=== PATIENT | female | born 1960 | race Caucasian/White ===

== ENCOUNTER 2020-08-17 11:39 | Outpatient (REF) | payer OTHER, SELFPAY | END 2020-08-17 11:40 | disposition home or self-care (01) | LOC: HO.LAB 11:39 | PROVIDERS: PCP Internal Medicine; Visit Provider Internal Medicine | DX: Z20.828 Contact with and (suspected) exposure to other viral communicable diseases (principal) | CPT/HCPCS: C9803; U0003 ==

== ENCOUNTER 2020-10-07 08:04 | Outpatient (REF) | payer OTHER, SELFPAY ==
--- NOTE | ~2020-10-07 | MM_ITS ---
EXAMINATION: MM SCREENING DIGITAL BREAST TOMOSYNTHESIS, BILATERAL CLINICAL INFORMATION: Screening. Asymptomatic. The lifetime risk of breast cancer based on the Tyrer-Cuzick Model is 6%. COMPARISON: Mammography: 10/31/2019, 09/20/2018, 09/18/2017 TECHNIQUE: Digital breast tomosynthesis is performed in both the craniocaudal and mediolateral oblique views along with computer-aided detection (CAD). Synthesized 2D images are generated from the tomosynthesis. FINDINGS: The breasts are heterogeneously dense, which may obscure small masses (ACR BI-RADS breast composition Category c). There are no significant masses, abnormal calcifications, or other abnormalities. Breast tissue composition borders on average fibroglandular. There are some stable calcifications central 3:00 left breast, likely vascular on tomography. No significant changes. MM/MM tomosynthesis screening BI IMPRESSION: No mammographic evidence of malignancy. ASSESSMENT: BI-RADS 2: Benign RECOMMENDATION: Routine annual mammography screening. This patient's information was entered into a reminder system with a target due date for their next mammogram.
== END 2020-10-07 08:05 | disposition home or self-care (01) ==
LOC: HO.MAMMO 08:04
PROVIDERS: Visit Provider Internal Medicine
DX: Z12.31 Encounter for screening mammogram for malignant neoplasm of breast (principal)
CPT/HCPCS: 77063; 77067

== ENCOUNTER 2020-10-27 07:53 | Day surgery (SDC) | payer OTHER, SELFPAY ==
[2020-10-22 10:30] VITALS: BMI 24.5
--- NOTE | 2020-10-26 08:51 | P.CONAN_ITS ---
Documented by User: Miladis Dominguez 10/26/20 08:51 HPI - Anesthesia Eval Consult details Narrative: 60yo F for Colonoscopy PMFSH Past Medical History Medical History (Updated 10/27/20 @ 09:53 by Alexia Qureshi) Anxiety and depression Hx: UTI (urinary tract infection) Hyperlipidemia Migraines Surgical History Surgical History History of History of endometrial ablation Hx of colonoscopy Hx of ovarian cystectomy Social History Social History Are you a primary acute care occupational therapist to a significant other at home: No Do you presently have visiting nurse or other home services: No Smoking Status: Never smoker Use of substances other than those prescribed or required for medical reasons: No Have you been hit, kicked, punched, or otherwise hurt by someone within the past year? If so, by whom?: No Advance Directives: No Advance Directives Information Provided: No Advance Directives on File: No Recently lost weight without trying: No Meds Allergies Allergy/AdvReac Type Severity Reaction Status Date / Time lincomycin Allergy Intermediate Rash Verified 10/27/20 08:45 sulfa Allergy Intermediate anaphylaxis Verified 10/27/20 08:45 terbinafine [Lamisil] Allergy Intermediate Anaphylaxis Verified 10/27/20 08:45 ampicillin Allergy Intermediate rash/hives Uncoded 10/27/20 08:45 clindamycin Allergy Intermediate rash/hives Uncoded 10/27/20 08:45 miconazole Allergy Intermediate rash/hives Uncoded 10/27/20 08:45 phenazopyridine Hcl Allergy Intermediate rash/hives Uncoded 10/27/20 08:45 Home Medications Medication Instructions Recorded Confirmed Last Taken Type atorvastatin 1 tab PO DAILY 10/22/20 10/22/20 Unknown History multivitamin 1 tab PO DAILY 10/22/20 10/22/20 Unknown History naproxen sodium [Aleve] 220 mg PO BID PRN 10/22/20 10/22/20 Unknown History sertraline 1 tab PO DAILY 10/22/20 10/22/20 10/27/20 06:30 History Exam Exam Date and Time: October 26, 2020 0851 Height,Weight and Vital Signs: Height 5 ft 6 in Weight 68.946 kg Assessment and Plan Assessment Anesthesia Assessment: Chart Reviewed Documented by User: Alexia Qureshi 10/27/20 10:01 PMFSH Past Medical History Medical History (Updated 10/27/20 @ 09:53 by Alexia Qureshi) Anxiety and depression Hx: UTI (urinary tract infection) Hyperlipidemia Migraines Family History Family history of problems with anesthesia: No Surgical History Surgical History History of History of endometrial ablation Hx of colonoscopy Hx of ovarian cystectomy History of Problems with Anesthesia: Yes (PONV with ) Social History Social History Are you a primary acute care occupational therapist to a significant other at home: No Do you presently have visiting nurse or other home services: No Smoking Status: Never smoker Use of substances other than those prescribed or required for medical reasons: No Have you been hit, kicked, punched, or otherwise hurt by someone within the past year? If so, by whom?: No Advance Directives: No Advance Directives Information Provided: No Advance Directives on File: No Recently lost weight without trying: No Meds Allergies Allergy/AdvReac Type Severity Reaction Status Date / Time lincomycin Allergy Intermediate Rash Verified 10/27/20 08:45 sulfa Allergy Intermediate anaphylaxis Verified 10/27/20 08:45 terbinafine [Lamisil] Allergy Intermediate Anaphylaxis Verified 10/27/20 08:45 ampicillin Allergy Intermediate rash/hives Uncoded 10/27/20 08:45 clindamycin Allergy Intermediate rash/hives Uncoded 10/27/20 08:45 miconazole Allergy Intermediate rash/hives Uncoded 10/27/20 08:45 phenazopyridine Hcl Allergy Intermediate rash/hives Uncoded 10/27/20 08:45 Home Medications Medication Instructions Recorded Confirmed Last Taken Type atorvastatin 1 tab PO DAILY 10/22/20 10/22/20 Unknown History multivitamin 1 tab PO DAILY 10/22/20 10/22/20 Unknown History naproxen sodium [Aleve] 220 mg PO BID PRN 10/22/20 10/22/20 Unknown History sertraline 1 tab PO DAILY 10/22/20 10/22/20 10/27/20 06:30 History Exam Height,Weight and Vital Signs: Vital Signs Temp Pulse Resp BP Pulse Ox 10/27/20 08:58 98.1 F 85 18 127/82 97 Airway Mallampati Class: II TM Dist: >3cm Neck ROM: Full Loose/Missing/Broken Teeth: No Heart: RRR Lungs: CTAB Assessment and Plan Assessment Anesthesia Assessment: Anesthesia Plan Discussed and Chart Reviewed Final Anesthetic Review NPO: Yes ASA Class: II Final Preanesthetic Review: No Changes in Pt Med Stat, Meds/Allgs Chart Reviewed, Consent Obtained/Reviewed and Anes Risks/Benef Reviewed Patient Risk: Low Procedure Risk: Low Assessment/Block/Sedation in SS: Assess/Block/Sedation-SS Anesthetic Plan Anesthetic Plan: MAC: Disposition: Standard PACU
[2020-10-27 08:58] VITALS: BP 127/82; PULSE 85; RESP 18; TEMP 36.7; O2SAT 97
[2020-10-27] MEDS: Lactated Ringers 1,000 ML 100 ML IVCONT (09:09)
--- NOTE | 2020-10-27 09:30 | P.HPSUR_ITS ---
Pre-Procedural Eval Section B Chief Complaint: screening Details of Present Illness: screening Relevant Family History (Specify if Yes): No Relevant Social History: None Present Medications: see Short Stay Collaborative assessment Medical History: No relevant PMH History of Previous Operations: No relevant previous surgery Allergies: Allergies Allergy/AdvReac Type Severity Reaction Status Date / Time lincomycin Allergy Intermediate Rash Verified 10/27/20 08:45 sulfa Allergy Intermediate anaphylaxis Verified 10/27/20 08:45 terbinafine [Lamisil] Allergy Intermediate Anaphylaxis Verified 10/27/20 08:45 ampicillin Allergy Intermediate rash/hives Uncoded 10/27/20 08:45 clindamycin Allergy Intermediate rash/hives Uncoded 10/27/20 08:45 miconazole Allergy Intermediate rash/hives Uncoded 10/27/20 08:45 phenazopyridine Hcl Allergy Intermediate rash/hives Uncoded 10/27/20 08:45 Review of Systems Sugical H&P ROS: Negative: Constitution, Cardiovascular, Respiratory, Neurological, Psychiatric, Hem-Onc, Allergic/Immunologic, Gastrointestinal, Ling tourinary, Musculoskeletal, Integumentary, Endocrine and Eyes/Ears/Nose/Throat Exam Surgical H&P Exam: Normal: HEENT, Normal: Heart, Normal: Lungs, Normal: Extremities, Normal: Abdomen, Normal: Skin and Normal: Neurological Plan Diagnosis/Plan: Unchanged I have reviewed the history and physical and performed a pertinent physical examination on my patient. No changes have occurred unless specified.
--- NOTE | 2020-10-27 09:58 | HO.ANESPROP2 ---
[facility] Past Medical History Medical History Anxiety and depression Hx: UTI (urinary tract infection) Hyperlipidemia Migraines Family History Family history of problems with anesthesia: No Surgical History Surgical History History of History of endometrial ablation Hx of colonoscopy Hx of ovarian cystectomy History of Problems with Anesthesia: Yes (PONV with ) Social History Social History Are you a primary child care development specialist to a significant other at home: No Do you presently have visiting nurse or other home services: No Smoking Status: Never smoker Use of substances other than those prescribed or required for medical reasons: No Have you been hit, kicked, punched, or otherwise hurt by someone within the past year? If so, by whom?: No Advance Directives: No Advance Directives Information Provided: No Advance Directives on File: No Recently lost weight without trying: No Meds Allergies Allergy/AdvReac Type Severity Reaction Status Date / Time lincomycin Allergy Intermediate Rash Verified 10/27/20 08:45 sulfa Allergy Intermediate anaphylaxis Verified 10/27/20 08:45 terbinafine [Lamisil] Allergy Intermediate Anaphylaxis Verified 10/27/20 08:45 ampicillin Allergy Intermediate rash/hives Uncoded 10/27/20 08:45 clindamycin Allergy Intermediate rash/hives Uncoded 10/27/20 08:45 miconazole Allergy Intermediate rash/hives Uncoded 10/27/20 08:45 phenazopyridine Hcl Allergy Intermediate rash/hives Uncoded 10/27/20 08:45 Active Medications: Current Medications Generic Name Dose Route Start Last Admin Trade Name Freq PRN Reason Stop Dose Admin Lactated Ringer's 1,000 mls @ 100 mls/hr 10/27/20 08:45 10/27/20 09:09 Lr IVCONT 100 mls/hr .Q10H SHERIN Administration Home Medications Medication Instructions Recorded Confirmed Last Taken Type atorvastatin 1 tab PO DAILY 10/22/20 10/22/20 Unknown History multivitamin 1 tab PO DAILY 10/22/20 10/22/20 Unknown History naproxen sodium [Aleve] 220 mg PO BID PRN 03/04/21 03/04/21 Unknown History sertraline 1 tab PO DAILY 10/22/20 10/22/20 10/27/20 06:30 History Exam Exam Date and Time: October 27, 2020 0958 Height,Weight and Vital Signs: Height 5 ft 6 in Weight 68.946 kg Last Vital Signs Temp 98.1 F 10/27/20 08:58 Pulse 85 10/27/20 08:58 Resp 18 10/27/20 08:58 BP 127/82 10/27/20 08:58 Pulse Ox 97 10/27/20 08:58 Airway Mallampati Class: II TM Dist: >3cm Neck ROM: Full
[2020-10-27 10:10] VITALS: BP 108/68; PULSE 80; RESP 16; TEMP 36.3; O2SAT 97
--- NOTE | 2020-10-27 10:14 | PM.OP ---
Brief Operative Note Date of Service: 10/27/20 Pre-op diagnosis: screening Post-op diagnosis: same (colon polyps) Procedure: colonoscopy Surgeon: Larry Murguia Anesthesia: MAC Estimated blood loss (mL): 2 Pathology: other (polyps x2) Condition: stable Disposition: PACU
[2020-10-27 10:25] VITALS: BP 125/77; PULSE 70; RESP 17; TEMP 36.3; O2SAT 100
--- NOTE | 2020-10-27 10:49 | OP_ITS ---
SURGEON: Larry Murguia MD INDICATIONS: Colon cancer screening. PREOPERATIVE DIAGNOSIS: POSTOPERATIVE DIAGNOSIS: PROCEDURE PERFORMED: Colonoscopy to the terminal ileum with biopsy and snare polypectomy. ESTIMATED BLOOD LOSS: COMPLICATIONS: ANESTHESIA: ASSISTANTS: SPECIMENS: MEDICATIONS: Monitored anesthesia care. DESCRIPTION OF PROCEDURE: History and physical performed. The risks and benefits of the procedure were explained to the patient. Informed consent was obtained and the patient was placed in left lateral decubitus position. A digital rectal exam was performed and was found to be normal. The Olympus pediatric video colonoscope was introduced into the rectum and advanced to the cecum without difficulty. The cecum was identified by transillumination, palpation, and identification of the ileocecal valve. Examination was performed and the scope was removed. She tolerated the procedure well and was transferred to recovery area in stable condition. FINDINGS: The terminal ileum was examined and appeared normal. The visualized colonic mucosa was within normal limits without evidence of masses or ulcers. Two polyps were identified. The first at 55 cm measured less than 5 mm and was removed with biopsy forceps. The second at 45 cm was removed with a snare, it measured approximately 6 mm and was recovered via suction. No other polyps were identified. The quality of prep was good. Retroflexed examination was remarkable for small internal hemorrhoids. IMPRESSION: Colon polyps. RECOMMENDATION: Follow up the biopsy results. MD SANFORD Belle/REJIL / [id number]
== END 2020-10-27 10:58 | disposition home or self-care (01) ==
PROVIDERS: PCP Physician Assistant Medical; Visit Provider Internal Medicine Gastroenterology
PROC: 0DJD8ZZ Inspection of Lower Intestinal Tract, Via Natural or Artificial Opening Endoscopic (ICD-10-PCS; CPT 45378; principal; 2020-10-27 09:10)
DX: Z12.11 Encounter for screening for malignant neoplasm of colon (principal); D12.5 Benign neoplasm of sigmoid colon; K64.8 Other hemorrhoids; E78.5 Hyperlipidemia, unspecified; F32.9 Major depressive disorder, single episode, unspecified; Z79.899 Other long term (current) drug therapy; Z79.1 Long term (current) use of non-steroidal anti-inflammatories (NSAID); Z88.1 Allergy status to other antibiotic agents; Z88.2 Allergy status to sulfonamides
CPT/HCPCS: 45385; 45380; 88305

== ENCOUNTER 2021-10-12 07:41 | Outpatient (REF) | payer BC, SELFPAY ==
--- NOTE | ~2021-10-12 | MM_ITS ---
EXAMINATION: MM SCREENING DIGITAL BREAST TOMOSYNTHESIS, BILATERAL CLINICAL INFORMATION: Screening. Asymptomatic. The lifetime risk of breast cancer based on the Tyrer-Cuzick Model is 6%. COMPARISON: Mammography: 10/07/2020, 01/31/2020, 09/20/2018 TECHNIQUE: Digital breast tomosynthesis is performed in both the craniocaudal and mediolateral oblique views along with computer-aided detection (CAD). Synthesized 2D images are generated from the tomosynthesis. FINDINGS: There are scattered areas of fibroglandular density (ACR BI-RADS breast composition Category b). There are no significant masses, abnormal calcifications, or other abnormalities. There are vascular calcifications again present central 3:00 left breast mid depth similar to prior exams. Breast tissue composition borders on average fibroglandular. The axilla and skin contours are unremarkable. There are no significant changes from prior studies. MM/MM tomosynthesis screening BI IMPRESSION: No mammographic evidence of malignancy. ASSESSMENT: BI-RADS 2: Benign RECOMMENDATION: Routine annual mammography screening. This patient's information was entered into a reminder system with a target due date for their next mammogram.
== END 2021-10-12 07:42 | disposition home or self-care (01) ==
LOC: HO.MAMMO 07:41
PROVIDERS: Visit Provider Physician Assistant Medical
DX: Z12.31 Encounter for screening mammogram for malignant neoplasm of breast (principal)
CPT/HCPCS: 77063; 77067

== ENCOUNTER 2022-10-20 07:18 | Outpatient (REF) | payer BC, SELFPAY ==
--- NOTE | ~2022-10-20 | MM_ITS ---
EXAMINATION: MM SCREENING DIGITAL BREAST TOMOSYNTHESIS, BILATERAL CLINICAL INFORMATION: Screening. Asymptomatic. The lifetime risk of breast cancer based on the Tyrer-Cuzick Model is 5%. COMPARISON: Mammography: October 12, 2021 and studies dating back to September 01, 2015 TECHNIQUE: Digital breast tomosynthesis is performed in both the craniocaudal and mediolateral oblique views along with computer-aided detection (CAD). Synthesized 2D images are generated from the tomosynthesis. FINDINGS: The breasts are heterogeneously dense, which may obscure small masses (ACR BI-RADS breast composition Category c). There are no significant masses, abnormal calcifications, or other abnormalities. Stable calcifications seen bilaterally. MM/MM tomosynthesis screening BI IMPRESSION: No significant changes from prior exam. ASSESSMENT: BI-RADS 2: Benign RECOMMENDATION: Routine annual mammography screening. This patient's information was entered into a reminder system with a target due date for their next mammogram.
== END 2022-10-20 07:19 | disposition home or self-care (01) ==
LOC: HO.MAMMO 07:18
PROVIDERS: PCP Physician Assistant Medical; Visit Provider Physician Assistant Medical
DX: Z12.31 Encounter for screening mammogram for malignant neoplasm of breast (principal)
CPT/HCPCS: 77063; 77067

== ENCOUNTER 2023-10-26 07:25 | Outpatient (REF) | payer BC, SELFPAY | END 2023-10-26 07:26 | disposition home or self-care (01) | LOC: HO.MAMMO 07:25 | PROVIDERS: PCP Physician Assistant Medical; Visit Provider Physician Assistant Medical | DX: Z12.31 Encounter for screening mammogram for malignant neoplasm of breast (principal) | CPT/HCPCS: 77063; 77067 ==

== ENCOUNTER → 2023-10-26 07:30 | Outpatient (BNV) | payer BC, SELFPAY | PROVIDERS: PCP Physician Assistant Medical; Visit Provider Radiology Diagnostic Radiology | DX: Z12.31 Encounter for screening mammogram for malignant neoplasm of breast (principal) | CPT/HCPCS: 77063; 77067 ==

== ENCOUNTER 2024-11-07 07:22 | Outpatient (REF) | payer BC, SELFPAY | END 2024-11-07 07:23 | disposition home or self-care (01) | LOC: HO.MAMMO 07:22 | PROVIDERS: Absent Provider Nurse Practitioner Adult Health; PCP Physician Assistant Medical; Visit Provider Physician Assistant Medical | DX: Z12.31 Encounter for screening mammogram for malignant neoplasm of breast (principal) | CPT/HCPCS: 77063; 77067 ==

== ENCOUNTER → 2024-11-07 07:30 | Outpatient (BNV) | payer BC, SELFPAY | PROVIDERS: Absent Provider Nurse Practitioner Adult Health; PCP Physician Assistant Medical; Visit Provider Internal Medicine | DX: Z12.31 Encounter for screening mammogram for malignant neoplasm of breast (principal) | CPT/HCPCS: 77063; 77067 ==

== ENCOUNTER 2025-06-05 09:33 | Outpatient (REF) | payer BC, SELFPAY ==
[2025-06-05 15:20] LABS: Chlamydia pneumoniae PCR Not Detected (Not Detect.); Coronavirus 229E PCR Not Detected (Not Detect.); Coronavirus HKU1 PCR Not Detected (Not Detect.); Coronavirus NL63 PCR Not Detected (Not Detect.); Coronavirus OC43 PCR Not Detected (Not Detect.); RSV PCR Not Detected (Not Detect.); Rhino/Enterovirus PCR Not Detected (Not Detect.)
[2025-06-05 16:04] LABS: Influenza A H1 PCR Not Detected (Not Detect.); Influenza A H1-2009 PCR Not Detected (Not Detect.); Influenza A H3 PCR Not Detected (Not Detect.); SARS-CoV-2 PCR Detected (Not Detect.)
== END 2025-06-05 09:34 | disposition home or self-care (01) ==
LOC: HO.LNP 09:33
PROVIDERS: PCP Physician Assistant Medical; Visit Provider Physician Assistant Medical
DX: R09.81 Nasal congestion (principal); R05.9 Cough, unspecified; R53.83 Other fatigue; R06.7 Sneezing; J34.89 Other specified disorders of nose and nasal sinuses
CPT/HCPCS: 87633

== ENCOUNTER 2025-06-05 09:33 | Outpatient (AMB) | payer BC, SELFPAY ==
--- NOTE | 2025-06-05 09:37 | AM.OFFWIN_ITS ---
Intake Vital Signs 06/05/25 09:41 Height 5 ft 6 in Weight 155 lb BMI 25.0 BP 120/74 Blood Pressure Location Lt brachial Position Sitting Pulse 90 Pulse Source Pulse Oximeter Temp 98.5 F Temp Source Oral Pulse Oximetry (%) 98 Intake Visit Reasons: EP Covid symptoms [phone] Intake Note: pt is here for c/o upper resp symptoms, 2 positive at home covid test, needs a work note Patient Tobacco Use Status: Never used Tobacco Allergies lincomycin Allergy (Intermediate, Verified 01/09/23 08:25) Rash sulfa Allergy (Intermediate, Verified 01/09/23 08:25) anaphylaxis terbinafine (Lamisil) Allergy (Intermediate, Verified 01/09/23 08:25) Anaphylaxis ampicillin Allergy (Intermediate, Uncoded 01/09/23 08:25) rash/hives clindamycin Allergy (Intermediate, Uncoded 01/09/23 08:25) rash/hives miconazole Allergy (Intermediate, Uncoded 01/09/23 08:25) rash/hives phenazopyridine Hcl Allergy (Intermediate, Uncoded 01/09/23 08:25) rash/hives Do you need a note to return to daycare/school/sports/work: Yes HPI HPI Comments History of Present Illness Details History - The patient is a 65-year-old female pr esenting with symptoms suggestive of a COVID-19 infection. - Symptoms began on Monday with mild fat igue and nasal congestion, progressing to sneezing and rhinorrhea by Monday. - The patient tested positive for COVID- 19 using home tests on Monday, with a repeat test confirming the result. - Symptoms include a dry throat, nasal c ongestion, and a dry cough, but no fever has been reported. - The patient has been vaccinated agains t COVID-19 but not recently. - The patient was exposed to family memb ers with cold-like symptoms over the weekend prior to symptom onset. - She has been taking Advil Cold at home . - She denies fever, CP, SOB, abd pain, n /v/d, PIRES, dizziness, loss of taste or smell. - She needs to confirm the diagnosis and get a work note when she needs or can return to work. Physical Exam General: Cooperative, healthy appearing, comfortable and no acute distress Orientation/consciousness: Patient oriented x3 Limitations: No limitations Head: Normal to inspection Ears: Hearing grossly normal bilaterally, external ears normal and TM's normal bilaterally Nose: Normal external nose present, normal nares present, and no nasal discharge present. Face and sinus: Sinuses nontender to palpation. Mouth: Normal oral and palatal mucosa present and moist mucous membranes noted. Throat: Tonsils normal. Uvula is midline. Posterior oropharynx with erythema and no exudates. Eyes: Appearance normal, both eyes and all related structures Neck: Normal visual inspection, full ROM. No lymphadenopathy noted. Respiratory: Clear to auscultation bilaterally. Normal respiratory effort, able to speak in complete sentences. No respiratory distress, not tachypneic, no tripod positioning and no use of accessory muscles. Cardiovascular: Regular rate and rhythm. Normal S1 and S2 Skin: No rashes or lesions noted Patient was informed and verbally consented to the use of an ambient scribe for clinic note documentation during this visit [facility] Medical History Anxiety and depression Hx: UTI (urinary tract infection) Hyperlipidemia Migraines Surgical History History of History of endometrial ablation Hx of colonoscopy Hx of ovarian cystectomy Social History Are you a primary hiv/aids care nurse to a significant other at home: No Do you presently have visiting nurse or other home services: No Patient Tobacco Use Status: Never used Tobacco Review of Systems Const All systems reviewed & are unremarkable except as noted in HPI and below Physical Exam Vital Signs: Last Vital Signs Temp 98.5 F 06/05/25 09:41 Pulse 90 06/05/25 09:41 BP 120/74 06/05/25 09:41 Pulse Ox 98 06/05/25 09:41 BMI result Body Mass Index 25.0 Assessment & Plan Assessment & Plan (1) URI with cough and congestion: Code(s): J06.9 - Acute upper respiratory infection, unspecified Plan Most likely covid vs flu vs RSV vs URI vs viral illness plan - will order a resp panel in the office today - The patient will quarantine for five days from symptom onset, followed by five days of mask use per CDC - Symptomatic treatment includes Flonase, a decongestant, and a cough suppressant. - will call with the results - tylenol or motrin as needed for pain or fever - A note will be provided for work clearance on Monday. Orders: Orders Resp Pathogen Panel - [facility] [place] J06.9 - Acute upper respiratory infection, unspecified Medications: New cetirizine-pseudoephedrine 5-120 mg ER 1 tab PO BID 14 tabs 0RF 7 days benzonatate 100 mg PO bid-tid PRN 21 caps 0RF Cough 7 days Coding Level of Care Code Est Pt Level 3 (43897) Diagnoses URI with cough and congestion J06.9
[2025-06-05 09:41] VITALS: BP 120/74; PULSE 90; TEMP 36.9; O2SAT 98; BMI 25.0
--- OUTSIDE RECORDS SUMMARY | 2025-06-05 10:56 | XMS_ITS | Clinical Summary ---
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 Name Role Phone Unavailable Primary Care Provider Unavailabl e Social History Tobacco Use Types Packs/Day Years Used Date Smoking Tobacco: Never Assessed Comments Unknown Sex and Gender Information Value Date Recorded Sex Assigned at Not on file Legal Sex Female 6:29 PM EST Gender Identity Not on file Sexual Orientation Not on file Plan of Treatment Health Maintenance Due Date Last Done Comments Advance Care Planning 1960 Hepatitis C Virus Screening 1960 DTaP/Tdap/Td Vaccines (1 - Tdap) 1978 Mammogram 1999 Colonoscopy 2004 Pneumococcal Vaccines 50+ (1 of 1 - PCV) 2009 Zoster (Shingles) Vaccine (1 of 2) 2009 DXA Bone Density (Females,Ag es 65 and older) 2024 Influenza Vaccine 03/21/2025 08/12/2020 COVID-19 Vaccine (1 - 2023-2 5 season) 2025 RSV Vaccine 50 years and old er and Patients (1 - 1-dose 75+ series) 2034 Hepatitis B Vaccines Aged Out No long er eligible based on patient's age to complete this topic Insurance [facility]
--- OUTSIDE RECORDS SUMMARY | 2025-06-05 10:56 | XMS_ITS | Patient Health Record ---
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 Name Role Phone Roland Stuart Primary Care Provider Larry Murguia Jr Unavailable Allergies Allergen (clinical drug ingredient) Drug/Non Drug Allergy documented on EMR Reaction Allergy Type Onset Date Status miconazole Miconazole Nitrate Unknown Drug Allergy Active Lamisil Unknown Drug Allergy Active clindamycin Clindamycin HCl Unknown Drug Allergy Active ampicillin Ampicillin Unknown Drug Allergy Activ e Substance with sulfonamide structure and antibacterial mechanism of action (substance) Sulfa Drugs (uncoded) Unknown Allergy Active lincomycin Lincomycin HCl Unknown Drug Allergy A ctive sulfacetamide Sulfacetamide Sodium Unknown Drug Allergy Active phenazopyridine Phenazopyridine HCl Unknown Drug Allergy Active Reason For Referral No Information Medications Medication SIG (Take, Route, Frequency, Duration) Notes Start Date End Date Status MiraLax (colon prep) 8.3 ounce ((238) grams mixed with Gatorade or Crystal Light orally begin at 5:00 p.m. the day before the procedure; Duration: 1 day 09/18/2020 Active Atorvastatin Calcium Active Sertraline HCl Activ e Aleve PRN Active Multivitamin w/ calciumm Activ e Ibuprofen PRN Active Immunizations Vaccine Route Administration Date Status Comme nts Influenza Unknown 06/03/2020 Administered Social History Tobacco Use: Social History Observation Description Date Details (start date - stop date) Never Smoker NA - NA Tobacco Use/Smoking Question Answer Notes Patient is a nonsmoker Alcohol Screen Question Answer Notes Did you have a drink contain ing alcohol in the past year? Yes How often did you have a dri nk containing alcohol in the past year? 2 to 3 times a week (3 points) How often did you have 6 or more drinks on one occasion in the past year? 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 use of non-steroidal anti-inflammat ory drug ([id number] 03) prison (current) use of non-steroidal anti-inflammatori es (NSAID) (Z79.1) Active confirmed Problem Pre-procedure evaluation check (685060459) Encounter for other preprocedural examination (Z01.818) Active confirmed Plan Of Treatment Future Test Test Name Order Date COLONOSCOPY 09/18/2020 Insurance Providers Payer Name Payer Address Payer Phone Subscriber Number Group Number Insured Name Patient Relationship to Insured Coverage Start Date Coverage End Date [facility] [address] [facility] [place] [phone] [id number] CARRIERRODRIGO Self - patient is the insured Medical (General) History Medical History History ICD Code anxiety/depression urinary tract infections hyperlipidemia irregular heartbeat , Holter monitor neg ative for pathology migraines Surgical History Surgery Date(Month/Year) section 2x uterine ablation, left ovarian cystectom y
--- OUTSIDE RECORDS SUMMARY | 2025-06-05 10:56 | XMS_ITS | Patient Health Record ---
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 Name Role Phone Roland Stuart MD Primary Care Provider Frederick Delcid Unavailable [phone] Allergies Allergen (clinical drug ingredient) Drug/Non Drug Allergy documented on EMR Reaction Allergy Type Onset Date Status ampicillin Ampicillin rash Drug Allergy Activ e clindamycin Clindamycin HCl rash/ dermatitis Drug Allergy Active Lamisil swelling, rash Drug Allergy Ac tive sulfacetamide Sulfacetamide Sodium rash/ dermatitis Drug Allergy Active lincomycin Lincomycin HCl rash/ dermatitis Drug Allergy Active sulfa rash/ dermatitis Drug Allergy Active Penicillin rash Drug Allergy Active codeine Codeine dizzy Drug Allergy Active Reason For Referral No Information Medications Medication SIG (Take, Route, Fr equency, Duration) Notes Start Date End Date Status Calcium Unknown Multivitamin Unknown Sertraline HCl 50 MG Oral; Duration: 090 Unknown Social History Tobacco use other than smoking: Question Answer Notes Are you an other tobacco user? No Problems Problem Type SNOMED Code ICD Code Onset Dates Problem Status W/U Status Risk Notes Problem Tinea unguium (585700920) Tinea unguium (B35.1) Active confirmed Plan Of Treatment Pending Test Test Name Order Date [id number] Plate 12/08/2016 Insurance Providers Payer Name Payer Address Payer Phone Subscriber Number Group Number Insured Name Patient Relationship to Insured Coverage Start Date Coverage End Date [facility] [address] [place] [address] [id number] Moises Germain Self - patient is the insured Medical (General) History Medical History History ICD Code Anxiety Migraines Measles Chicken pox Surgical History Surgery Date(Month/Year) section 1980, 1982 left ovarian cyst 2014 lasik eye sx
--- OUTSIDE RECORDS SUMMARY | 2025-06-05 10:56 | XMS_ITS | Clinical Summary ---
Author Organization [facility] [address] 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 Acti ve LYSINE ACETATE ORAL by Not Applicable route. Active B complex tablet 1 TABLET DAILY Activ e sertraline (ZOLOFT) 50 mg tablet Take 1 tablet (50 mg total) by mouth 1 (one) time each day. 90 tablet 3 5 Active atorvastatin (LIPITOR) 10 mg tablet Take 1 tablet (10 mg total) by mouth 1 (one) time each day. 90 tablet 3 5 Active valACYclovir (VALTREX) 1 gram tablet Take 2 tablets (2,000 mg total) by mouth 2 (two) times a day. 4 tablet 11 5 Active diclofenac (VOLTAREN) 1 % topical gel Apply 2 gram four times daily to affected joint 100 g 3 5 Active fluticasone propionate (FLONASE) 50 mcg/actuation nasal spray Administer 1 spray into each nostril 1 (one) time each day. Shake gently. Before first use, prime pump. After use, clean tip and replace cap. 16 g 5 Active Active Problems Problem Noted Date Diagnosed Date [facility] arthritis 04/09/2025 Osteopenia 08/30/2024 Depression 11/12/2020 Subclinical hypothyroidism 11/30/2015 Osteopenia 10/22/2015 Hyperlipidemia 04/23/2015 Anxiety 11/07/2013 Migraine 02/28/2008 Overview (07/24/2024): Sees Dr Rich Encounters Date Type Department Care Team Description 04/09/2025 8:00 AM EDT Office Visit Adult Medicine [address] [phone] Umer Obrien, [place] Other hyperlipidemia (Primary Dx); [facility] arthritis; Other migraine without status migrainosus, not intractable; Depression, unspecified depression type; Anxiety; Osteopenia, unspecified location; Subclinical hypothyroidism; Sensorineural hearing loss (SNHL) of left ear, unspecified hearing status on contralateral side from Last 3 Months Immunizations Immunization Administration Dates Next Due Influenza Quadravalent, MDCK , 0.5ml, preservative free (Flucelvax) 6mo and older 06/13/2022,05/31/2021,05/22/2020 Influenza trivalent, 0.5mL ( Fluad) 65yo and older 05/22/2024 Influenza trivalent, 0.5mL, preservative free (Fluarix; FluLaval; Fluzone) ages 6mo and older (Afluria) 3 years and older 05/27/2016,04/28/2015,05/10/2013,2012,08/24/2011 Influenza trivalent, with preservative (Fluzone; Afluria) 6mo and older 06/03/2020 Influenza, Unspecified 06/09/2023 Pfizer SARS-CoV-2 COVID-19, mRNA, LNP-S, preservative free 11/04/2020 Pneumococcal conjugate 20 va lent (Prevnar 20, PCV 20) 2mo and older 04/08/2024 Td Tetanus diptheria (Tdvax) 7yo and older 11/08/2018 Tdap Tetanus diptheria acell ular pertussis (Boostrix; Adacel) 7yo and older 11/11/2020,02/28/2008 Zoster recombinant (Shingrix ) 19yo and older 03/27/2021,01/23/2021 Surgical History Surgery Date Site/Laterality Comments COLONOSCOPY 11/19/09 PROCEDURE: HISTORICAL COLONOSCOPY; COMMENT: hemorrhoids; repeat in ten years SECTION PROCEDURE: GA DELIVERY ONLY; COMMENT: x2 WISDOM TOOTH EXTRACTION PROCEDURE: HISTORICAL WISDOM TEETH EXTRACTION EYE SURGERY PROCEDURE: HISTORICAL EYE SURGERY; COMMENT: lasik OTHER SURGICAL HISTORY PROCEDURE: ---- OTHER ----; COMMENT: toenail removed, ablation OOPHORECTOMY 2013 Left PROCEDURE: GA OOPHORECTOMY PARTIAL/TOTAL UNI/BI; COMMENT: cyst COLONOSCOPY 10/27/2020 PROCEDURE: HISTORICAL COLONOSCOPY; COMMENT: dr. maynard - polyps Medical History Medical History Date Comments Migraine 02/28/2008 DX:Migraine; COM MENT: Sees Dr Rich Depression 11/12/2020 DX:Depression History of recurrent UTI (ur inary tract infection) 11/12/2020 DX:History of recurrent UTI (urinary tract infection) Subclinical hypothyroidism 11/30/2015 DX:Pulido bclinical hypothyroidism Osteopenia 10/22/2015 DX:Osteopenia Hyperlipidemia 04/23/2015 DX:Hyperlipidemi a Family History Medical History Relation Name Comments Other: none Other pt is adopted Relation Name Status Comments Father's side patient is ado pted Other Social History Tobacco Use Types Packs/Day Years Used Date Smoking Tobacco: Never Smokeless Tobacco: Never Alcohol Use Standard Drinks/Week Comments Yes 1.7 (1 standard drink = 0.6 oz p ure alcohol) Housing Instability Answer Date Recorde d Are you worried that in the next 2 months you may not have stable housing? No 04/09/2025 Food Access & Nutrition Answer Date Rec orded Do you have access to a vari ety of food including fruits and vegetables? Yes 04/09/2025 Health Literacy Answer Date Recorded How often do you need to hav e someone help you when you read instructions, pamphlets, or other written material from your doctor or pharmacy? Never 04/09/2025 Caregiver: How often do you need to have someone help you when you read instructions, pamphlets, or other written material from your doctor or pharmacy? Not on file 04/09/2025 Financial Risk Answer Date Recorded How hard is it for you to pa y for the very basics like food, housing, medical care, and air conditioning / heating? Not very hard 04/09/2025 Transportation Answer Date Recorded Has the lack of transportati on kept you from meetings, work, or from getting things needed for daily living? No Has the lack of transportati on kept you from medical appointments or from getting medications? No 04/09/2025 Social Isolation Answer Date Recorded How often do you feel lonely or isolated from ose around you? Never 04/09/2025 Food Risk Answer Date Recorded Within the past 12 months we worried whether our food would run out before we got money to buy more. Never true 04/09/2025 Within the past 12 months th e food we bought just didn't last and we didn't have money to get more. Never true 04/09/2025 Dependent Care Answer Date Recorded Do you need help finding or paying for care for your loved ones. For example, childcare attendant or elderly care for an older adult? No 04/09/2025 Education Answer Date Recorded Do you think completing more education or training, like finishing a GED, going to college, or learning a trade, would be helpful for you? No 04/09/2025 Employment and Income Answer Date Recor ded During the last four weeks, have you been actively looking for work? No 04/09/2025 Living Situation Answer Date Recorded What is your living situation? Unrecognized valu e 04/09/2025 Comments No Sex and Gender Information Value Date Recorded Sex Assigned at Not on file Legal Sex Female 1:01 PM EST Gender Identity Not on file Sexual Orientation Not on file Obstetrics History Last Filed Vital Signs Vital Sign Reading Time Taken Comments Blood Pressure 109/64 04/09/2025 7:53 AM EDT Pulse 77 04/09/2025 7:53 AM EDT Temperature 35.6 C (96 F) 04/09/2025 7:53 AM EDT Respiratory Rate 16 04/09/2025 7:53 AM EDT Oxygen Saturation 95% 04/09/2025 7:53 AM EDT Inhaled Oxygen Concentration - - Weight 70.8 kg (156 lb) 04/09/2025 7:53 AM EDT Height 167.6 cm (5' 6 ) 04/09/2025 7:53 AM EDT Body Mass Index 25.18 04/09/2025 7:53 AM EDT Plan of Treatment Upcoming Encounters Date Type Department Care Team (Late st Contact Info) Description 10/14/2025 8:30 AM EST Office Visit Adult Medicine [address] [phone] Umer Obrien PA [address] [place] [phone] Health Maintenance Due Date Last Done Comments COVID-19 Vaccine ( season) 2025 07/05/2021, 11/04/2020, 10/07/2020, Additional history exists Influenza Vaccine (#1) 2025 , 06/21/2023, 06/09/2023, Additional history exists Falls Risk Assessment 04/09/2026 04/09/2025 Social Influencers of Health Screening 04/09/2026 04/09/2025 Breast Cancer Screening 11/07/2026 11/08/19, 11/07/2024, 10/26/2023 Cholesterol Screening (Lipid Panel) 03/25/2030 03/25/2025, 03/21/2024, 03/21/2024 Colorectal Cancer Screening: Colonoscopy 10/27/2030 10/27/2020 DTaP,Tdap,and Td Vaccines (4 - Td or Tdap) 11/11/2030 11/11/2020, 11/08/2018, 02/28/2008 RSV Immunization Adult Patients (1 - 1-dose 75+ series) 2034 Osteoporosis Screening (Bone Density Screening) 08/30/2034 08/30/2024 Hepatitis C Screening Completed 10/31/2013 Zoster Vaccines Completed 03/27/2021, 01/23/2021 Pneumococcal Vaccine: 50+ Years Completed 04/08/2024 Depression Screening Completed 04/09/2025 HIB Vaccines Aged Out No longer eligi ble based on patient's age to complete this topic HPV Vaccines Aged Out No longer eligi ble based on patient's age to complete this topic Hepatitis A Vaccines Aged Out No long er eligible based on patient's age to complete this topic Hepatitis B Vaccines Aged Out No long er eligible based on patient's age to complete this topic IPV Vaccines Aged Out No longer eligi ble based on patient's age to complete this topic MMR Vaccines Aged Out No longer eligi ble based on patient's age to complete this topic Meningococcal ACWY Vaccine Aged Out N o longer eligible based on patient's age to complete this topic Meningococcal B Vaccine Aged Out No l onger eligible based on patient's age to complete this topic RSV Immunization Patients Under 20 months Aged Out No longer eligible based on patient's age to complete this topic Varicella Vaccines Aged Out No longer eligible based on patient's age to complete this topic Procedures Procedure Name Priority Date/Time Associated Diagnosis Comments TRIIODOTHYRONINE FREE Routine 03/25/2025 7:37 AM EDT Anxiety Depression, unspecified depression type Other hyperlipidemia Subclinical hypothyroidism Osteopenia, unspecified location Other migraine without status migrainosus, not intractable [facility] arthritis FREE THYROXINE WITH REFLEX TO FREE TRIIODOTHYRONINE Routine 03/25/2025 7:37 AM EDT Anxiety Depression, unspecified depression type Other hyperlipidemia Subclinical hypothyroidism Osteopenia, unspecified location Other migraine without status migrainosus, not intractable [facility] arthritis LIPID PANEL WITH REFLEX TO DIRECT LDL Routine 03/25/2025 7:37 AM EDT Anxiety Depression, unspecified depression type Other hyperlipidemia Subclinical hypothyroidism Osteopenia, unspecified location Other migraine without status migrainosus, not intractable [facility] arthritis COMPREHENSIVE METABOLIC PANEL Routine 03/25/2025 7:37 AM EDT Anxiety Depression, unspecified depression type Other hyperlipidemia Subclinical hypothyroidism Osteopenia, unspecified location Other migraine without status migrainosus, not intractable [facility] arthritis THYROID STIMULATING HORMONE WITH REFLEX TO FREE T4 AND FREE T3 Routine 03/25/2025 7:37 AM EDT Anxiety Depression, unspecified depression type Other hyperlipidemia Subclinical hypothyroidism Osteopenia, unspecified location Other migraine without status migrainosus, not intractable [facility] arthritis EXTERNAL MAMMOGRAM REPORT 11/07/2024 BD BONE DENSITY DXA AXIAL SKELETON Routine 08/30/2024 3:06 PM EST Encounter for screening for osteoporosis COLONOSCOPY Routine 10/27/2020 HEPATITIS C SCREENING Routine 10/31/2013 from Last 3 Months or Most Recently Relevant to Health Maintenance Results * (ABNORMAL) Thyroid stimulating hormone with reflex to free t4 and free t3 (03/25/2025 7:37 AM EDT) TSH 4.03(H) 0.40 - 4.00 mcIU/mL LAB CHEMISTRY METHOD 03/25/2025 11:33 AM EDT [facility] Blood Venous blood specimen / Unknown Venipuncture / Unknown 03/25/2025 7:37 AM EDT 03/25/2025 7:37 AM EDT Umer LYLE LAB BLOOD ORDERABLES Huong l Result Performing Organization Address City/[facility]/ZIP Co de Phone Number [facility] [address] [place] [address], [place] [phone] * Free thyroxine with reflex to free triiodothyronine (03/25/2025 7:37 AM EDT) Free T4 0.83 0.70 - 1.80 ng/dL LAB CHEMISTRY METHOD 03/25/2025 12:00 PM EDT [facility] Blood Venous blood specimen / Unknown Venipuncture / Unknown 03/25/2025 7:37 AM EDT 03/25/2025 7:37 AM EDT Umer LYLE LAB BLOOD ORDERABLES Huong l Result [facility] [address] [place] [address], [place] [phone] * Lipid panel with reflex to direct LDL (03/25/2025 7:37 AM EDT) Cholesterol 168 0 - 200 mg/dL LAB CHEMISTRY METHOD 03/25/2025 11:08 AM EDT [facility] Triglycerides 105 0 - 150 mg/dL LAB CHEMISTRY [facility] HDL 67 >=40 mg/dL LAB CHEMISTRY METHOD 03/25/2025 11:08 AM [facility] LDL Calculated 80 0 - 100 mg/dL LAB CHEMISTRY METHOD 03/25/2025 11:08 AM [facility] Comment:Estimated LDL Calcul ated using equation: Total cholesterol - HDL cholesterol - (Triglycerides/5) VLDL Cholesterol Jaime 21 mg/dL LAB CHEMISTRY METHOD 03/25[facility]2025 [facility] Non HDL Chol. (LDL+VLDL) 101 <145 mg/dL LAB CHEMISTRY METHOD 03/25/2025 11:08 AM [facility] Chol/HDL Ratio 2.5 0.0 - 4.4 LAB CHEMISTRY METHOD 03/25/2025 11:08 AM [facility] Blood Venous blood specimen / Unknown Venipuncture / Unknown 03/25/2025 7:37 AM EDT 03/25/2025 7:37 AM EDT us Umer LYLE LAB BLOOD ORDERABLES Huong l Result [facility] [address] [place] [address], [place] [phone] * Triiodothyronine free (03/25/2025 7:37 AM EDT) T3, Free 314 230 - 420 pcg/dL LAB CHEMISTRY METHOD 03/25/2025 12:42 PM EDT [facility] Blood Venous blood specimen / Unknown Venipuncture / Unknown 03/25/2025 7:37 AM EDT 03/25/2025 7:37 AM EDT Umer LYLE LAB BLOOD ORDERABLES Huong l Result [facility] [address] [place] [address], * Comprehensive metabolic panel (03/25/2025 7:37 AM EDT) Sodium 139 133 - 145 mmol/L LAB CHEMISTRY METHOD 03/25/2025 11:08 AM [facility] Potassium 4.2 3.5 - 5.5 mmol/L LAB CHEMISTRY METHOD 03/25/2025 11:08 AM [facility] Chloride 109 96 - 110 mmol/L LAB CHEMISTRY METHOD 03/25/2025 11:08 AM [facility] CO2 26 21 - 32 mmol/L LAB CHEMISTRY METHOD 03/25/2025 11:08 AM [facility] Anion Gap 4 3 - 11 LAB CHEMISTRY METHOD 03/25/2025 11:08 AM [facility] Glucose 92 70 - 100 mg/dL LAB CHEMISTRY METHOD 03/25/2025 11:08 AM [facility] BUN 14 5 - 25 mg/dL LAB CHEMISTRY METHOD 03/25/2025 11:08 AM [facility] Creatinine 0.81 0.50 - 1.10 mg/dL LAB CHEMISTRY METHOD 03/25/2025 11:08 AM [facility] eGFR 81 >=60 mL/min/1. 73m2 LAB CHEMISTRY METHOD 03/25/2025 11:08 AM [facility] Comment:Calculation based on the Chronic Kidney Disease Epidemiology Collaboration (CKD-EPI) equation refit without adjustment for race. BUN/Creatinine Ratio 17.3 LAB CHEMISTRY METHOD 03/25/2025 11:08 AM [facility] Calcium 9.9 8.5 - 10.5 mg/dL LAB CHEMISTRY METHOD 03/25/2025 11:08 AM [facility] AST (SGOT) 17 10 - 42 unit/L LAB CHEMISTRY METHOD 03/25/2025 11:08 AM [facility] ALT (SGPT) 21 10 - 60 unit/L LAB CHEMISTRY METHOD 03/25/2025 11:08 AM [facility] Alkaline Phosphatase 51 42 - 121 unit/L LAB CHEMISTRY METHOD 03/25/2025 11:08 AM [facility] Total Protein 7.5 6.0 - 8.0 g/dL LAB CHEMISTRY METHOD 03/25/2025 11:08 AM [facility] Albumin 4.1 3.2 - 5.0 g/dL LAB CHEMISTRY METHOD 03/25/2025 11:08 AM [facility] Total Bilirubin 0.5 0.0 - 1.4 mg/dL LAB CHEMISTRY METHOD 03/25/2025 11:08 AM [facility] Blood Venous blood specimen / Unknown Venipuncture / Unknown 03/25/2025 7:37 AM EDT 03/25/2025 7:37 AM EDT Umer LYLE LAB BLOOD ORDERABLES Huong l Result [facility] [address] [place] [address], * External Mammogram Report (11/07/2024) Anatomical Region Laterality Modality Mammography us Provider [facility] BI PROCEDURES Final Result * BD Bone Density DXA Axial Skeleton (08/30/2024 3:06 PM EST) Anatomical Region Laterality Modality Wrist, Hip, L-spine Bone Densito metry 08/30/2024 4:21 PM EST Impressions 08/30/2024 4:22 PM EST Osteopenia by WHO criteria. This patient has a 12% risk of major osteoporotic fracture and a 2.1% risk of hip fracture over the next 10 years. (World Health Organization Fracture Risk Assessment) [facility] Department of Internal Medicine recommends using National Osteoporosis Foundation (NOF) guidelines in treatment decisions related to osteoporosis. NOF guidelines suggest considering treatment for postmenopausal women and men aged 50 or older presenting with the following: History of hip or vertebral fracture. T-score = -2.5 (DXA) at the femoral neck, total hip, or spine, after appropriate evaluation to exclude secondary causes. Low bone mass (T-score between -1.0 and -2.5 at the femoral neck or spine) AND a 10-year probability of a hip fracture = 3% OR a 10-year probability of a major osteoporosis-related fracture = 20% based on the [place]-adapted WHO algorithm Please note that all treatment decisions require clinical judgment and consideration of individual patient factors, including patient preferences, co-morbidities, previous drug use, risk factors not captured in the FRAX model (e.g., frailty, falls, vitamin D deficiency, increased bone turnover, interval significant decline in bone density) and possible under- or over-estimation of fracture risk by FRAX. Optional alternative screening schedule based on harpreet Harris., [facility] September 08, 2011 for patients with osteopenia (based on hip BMD T-score) is as follows: * advanced osteopenia (T scores -2.00 to -2.49), BMD testing every year * moderate osteopenia (T scores -1.50 to -1.99), BMD testing every 5 years mild osteopenia or normal BMD (T scores -1.50 and higher), BMD testing every 15 years -------- FINAL REPORT -------- Dictated By: Allie Carballo Dictated Date: 08/30/2024 16:21 ET Assigned Physician: Allie Carballo Reviewed and Electronically Signed By: Allie Carballo Signed Date: 08/30/2024 16:22 ET Workstation ID: [id number] Transcribed By: Self Edit Transcribed Date: 08/30/2024 16:21 ET Narrative 08/30/2024 4:22 PM EST BONE DENSITY SCAN (DEXA): FINDINGS: Lumbar Spine T-score is -0.4. (SD relative to 20-29 y/o adult) Z-score is 1.4. (SD relative to age matched peers) This is considered normal by WHO criteria. Left Hip T-score is -2.3. Z-score is -0.7. This is considered osteopenia by WHO criteria. Comparison exam(s): None. Procedure Note Allie Carballo MD - 08/30/2024 BONE DENSITY SCAN (DEXA): FINDINGS: Lumbar Spine T-score is -0.4. (SD relative to 20-29 y/o adult) Z-score is 1.4. (SD relative to age matched peers) This is considered normal by WHO criteria. Left Hip T-score is -2.3. Z-score is -0.7. This is considered osteopenia by WHO criteria. Comparison exam(s): None. IMPRESSION: Osteopenia by WHO criteria. This patient has a 12% risk of majorosteoporotic fracture and a 2.1% risk of hip fracture over the next 10years. (World Health Organization Fracture Risk Assessment) [facility] Department of Internal Medicine recommendsusing National Osteoporosis Foundation (NOF) guidelines in treatmentdecisions related to osteoporosis. NOF guidelines suggest consideringtreatment for postmenopausal women and men aged 50 or older presentingwith the following: History of hip or vertebral fracture. T-score = -2.5 (DXA) at the femoral neck, total hip, or spine, afterappropriate evaluation to exclude secondary causes. Low bone mass (T-score between -1.0 and -2.5 at the femoral neck or spine)AND a 10-year probability of a hip fracture = 3% OR a 10-year probabilityof a major osteoporosis-related fracture = 20% based on the [place]-adapted WHOalgorithm Please note that all treatment decisions require clinical judgment andconsideration of individual patient factors, including patientpreferences, co-morbidities, previous drug use, risk factors not capturedin the FRAX model (e.g., frailty, falls, vitamin D deficiency, increasedbone turnover, interval significant decline in bone density) and possibleunder- or over-estimation of fracture risk by FRAX. Optional alternative screening schedule based on sarah Harris al., NEJMJanuary 2011 for patients with osteopenia (based on hip BMD T-score)is as follows: * advanced osteopenia (T scores -2.00 to -2.49), BMD testing every year * moderate osteopenia (T scores -1.50 to -1.99), BMD testing every 5years mild osteopenia or normal BMD (T scores -1.50 and higher), BMD testingevery 15 years -------- FINAL REPORT -------- Dictated By: Allie Carballo Dictated Date: 08/30/2024 16:21 ET Assigned Physician: Allie Carballo Reviewed and Electronically Signed By: Allie Carballo Signed Date: 08/30/2024 16:22 ET Workstation ID: [id number] Transcribed By: Self Edit Transcribed Date: 08/30/2024 16:21 ET Umer LYLE IMMarla DXA PROCEDURES Final Result * Colonoscopy (10/27/2020) [facility] Colonoscopy abstract Ofelia Maynard Anatomical Region Laterality Modality Other Historical Provider HEALTH MAINTENANCE Final Result * Hepatitis C Screening (10/31/2013) [facility] Hepatitis C Screening abstratced Historical Provider HEALTH MAINTENANCE Final Result from Last 3 Months or Most Recently Relevant to Health Maintenance Insurance [phone] (Work) [address] [place] [address] MEDICARE BLAD[facility]IR LYLE [facility]) Care Teams Pressure Tester Operator Relationship Specialty Start Date End Date Umer Obrien PA [address] [place] [address] PCP - General Internal Medicine 01/11/21
--- OUTSIDE RECORDS SUMMARY | 2025-06-05 10:56 | XMS_ITS | Encounter Summary ---
Author Organization [facility] Address [address] [place] [id number] Care Team Providers Care Cook Frozen Dessert Name Role Phone Unavailable Primary Care Provider Unavailabl e Encounter Details Date Type Department Care Team (Latest Contact Info) Description 08/11/2020 Lab Requisition [facility] [address] [place] [address] [address] [place] [address] Umer Price PA-C [address] [place] [id number] Encounter for laboratory testing for COVID-19 virus Social History Tobacco Use Types Packs/Day Years Used Date Smoking Tobacco: Never Assessed Comments Unknown Sex and Gender Information Value Date Recorded Sex Assigned at Not on file Legal Sex Female 6:29 PM EST Gender Identity Not on file Sexual Orientation Not on file COVID-19 Exposure Response Date Recorded In the last month, have you been in contact with someone who was confirmed or suspected to have Coronavirus / COVID-19? Unable to assess 08/11/2020 11:06 AM ES T documented as of this encounter Plan of Treatment Not on file documented as of this encounter Procedures Procedure Name Priority Date/Time Associated Diagnosis Comments COVID-19 (SARS-COV-2) - SEMA4 LAB Routine 08/11/2020 11:07 AM EST Encounter for laboratory testing for COVID-19 virus [ICD-10-CM] documented in this encounter Results * COVID-19 (SARS-COV-2) (SEMA4) (08/11/2020 11:07 AM EST) COVID-19 RT-PCR NOT-DETEC JOSEY Not-Detec josey 08/13/2020 7:01 PM EST [facility] Comment:Interpretation: The viral RNA was not detected, making the COVID-19 diagnosis less likely. Clinical correlation is highly recommended.Final report signed by Chiqui Murphy, Ph.D., Laboratory DirectorTests performed at [facility] Nasopharyngeal swab / Unknown 08/11/2020 11:07 AM EST 08/11/2020 11:07 AM EST Narrative ALEKSANDR NOLAN - 08/13/2020 7:01 PM EST Performed by [facility] [address] [place] [address], CLIA# [id number] and [place] License# [id number] us Umer Price PA-C MICROBIOLOGY - GENERAL OR DERABLES Final Result ALEKSANDR GUILLAUME NOLAN documented in this encounter Visit Diagnoses Diagnosis Encounter for laboratory testing for COVID-19 virus documented in this encounter
--- OUTSIDE RECORDS SUMMARY | 2025-06-05 10:57 | XMS_ITS ---
Author Name [facility] Organization Unknown Care Team Organization Name Specialty Phone Email Start Date End [facility] Termed, PROVIDER Primary Care 06/28/202203/21
== END 2025-06-05 11:02 | disposition home or self-care (01) ==
PROVIDERS: PCP Physician Assistant Medical; Visit Provider Physician Assistant Medical
DX: J06.9 Acute upper respiratory infection, unspecified (principal)